=== PATIENT | female | born 1975 | race Caucasian/White ===

== ENCOUNTER → 2017-03-18 17:11 | Outpatient (CLI) | payer BC, SELFPAY ==
--- NOTE | 2017-03-18 17:16 | MM_ITS ---
MM Dig screening mamm BI w/CAD CAD Screening ORDERING PHYSICIAN : Nico Kulkarni MD PATIENT AGE: 41 years GENDER: Female COMPARISON: Previous mammograms: February 2015, May 2009, February INDICATION: Routine SCREENING mammogram ordered Patient notes Prior breast discharge on left with touch prep performed through Dr. Villalta office, reportedly revealed foam cells. No breast discharge today with the mammogram as per technologistBH-as was portable history provided. TECHNIQUE: Standard CC and MLO images were obtained. R2 CAD reviewed. Also additional axillary cc view both breast and and 90 degrees view left breast FINDINGS: Dense breast bilaterally decreases sensitivity of mammography but multiple prior studies are helpful and supportive stable appearance here by mammography.. The breast of this density ultrasound can be useful compliment and should be considered if clear or bloody discharge should persist No dominant mass nor suspicious calcifications in either breast on today's study. RIGHT BREAST: No new findings a stable dense breast pattern LEFT BREAST:No appreciable new findings. Stable dense breast pattern IMPRESSION: . 1. Dense breast bilaterally with no significant change previous studies on today's screening mammogram I would note diffusely dense breast pattern does decrease sensitivity of mammography.. Ultrasound can be useful compliment to mammography in this setting . Low threshold for breast ultrasound particularly if developed palpable area develops; or if persistent clear or bloody discharge should persist.. --. *Addendum:*--- I now see on additional history from technologist, states that the patient has had bleeding from the nipple for up to 4 months.. & Dr. Villalta did a nipple smear slide in his office which was negative. However If indeed there has indeed been \bloody nipple discharge for 4 months with no evident associated skin lesion,... Then ultrasound would be in order to further survey left breast; looking for any intraductal papilloma or intraductal features BI-RADS Category: 0 Need Additional Imaging Evaluaiton. RECOMMENDED FOLLOW-UP: IMM - IMMEDIATE FOLLOW-UP RECOMMENDED Ultrasound left breast recommended at patient's convenience or preferably with bloody discharge occurring. (A letter has been sent to the patient regarding results of the study.)
== END ==
PROVIDERS: Family Provider Family Medicine; PCP Family Medicine; Visit Provider Nurse Practitioner Obstetrics & Gynecology
DX: Z12.31 Encounter for screening mammogram for malignant neoplasm of breast (principal); Z01.419 Encounter for gynecological examination (general) (routine) without abnormal findings
CPT/HCPCS: 77067

== ENCOUNTER → 2017-03-21 15:46 | Outpatient (POV) | payer BC, SELFPAY | PROVIDERS: Visit Provider Dermatology | DX: Z00.00 Encounter for general adult medical examination without abnormal findings (principal) ==

== ENCOUNTER → 2017-03-22 10:11 | Outpatient (CLI) | payer BC, SELFPAY ==
--- NOTE | 2017-03-22 10:14 | US_ITS ---
US breast LT complete including axillary survey. ORDERING PHYSICIAN : Nico Kulkarni MD PATIENT AGE: 41 years GENDER: Female COMPARISON: February 2016 and 2017 and 2016 lateral mammogram. INDICATION: Breast discharge left breast, at times bloody TECHNIQUE: Standard CC and MLO images were obtained. R2 CAD reviewed. FINDINGS: Very dense breast bilaterally decreases sensitivity of mammography. There is been slight additional fatty replacement however when compared back to 2009 ========= LEFT BREAST ultrasound including axilla survey: . Dense fibrotic glandular tissue throughout left breast generous ducts throughout left breast most evident at retroareolar region. However no discrete or unique no intraductal lesion or findings identified No dominant mass or cyst otherwise left breast... . Limited axillary survey unremarkable. IMPRESSION: Ultrasound left breast reveals prominent ducts left breast most evident at the retroareolar region. No intraductal lesions evident Dense breast. Based on imaging alone follow-up in one year the adequate..* However if bloody discharge should persist clinically, consider 6 month follow-up to again survey BI-RADS Category: 2 Benign Finding(s) RECOMMENDED FOLLOW-UP: 1YR - 1 YEAR FOLLOW-UP .* However if bloody discharge should persist clinically consider 6 month follow-up (A letter has been sent to the patient regarding results of the study.) In
== END ==
PROVIDERS: PCP Family Medicine; Visit Provider Nurse Practitioner Obstetrics & Gynecology
DX: R92.2 Inconclusive mammogram (principal)
CPT/HCPCS: 76641

== ENCOUNTER → 2017-03-26 18:31 | Outpatient (CLI) | payer BC, SELFPAY ==
[2017-03-26 18:48] LABS: Basophils % 0.6 % (0.1-2.0); Eosinophils # 0.1 K/mm3 (0.0-0.4); Eosinophils % 0.7 % (0.1-12.0); Hematocrit 39.2 % (37.0-47.0); Hemoglobin 12.9 g/dL (12.2-16.2); Lymphocytes # 2.7 K/mm3 (0.7-4.5); Lymphocytes % 37.3 K/mm3 (10-50); Mean Corpuscular HGB Conc 32.8 g/dL (31.8-35.4); Mean Corpuscular Hemoglobin 31.1 pg (27.0-31.2); Mean Platelet Volume 8.3 fl (7.4-10.4); Monocytes # 0.3 K/mm3 (0.1-1.0); Neutrophils # 4.2 K/mm3 (1.8-7.8); Neutrophils % 57.4 % (37.0-80.0); Platelet Count 247 K/mm3 (142-424); Red Blood Count 4.13 M/mm3 (4.20-5.40); Red Cell Distribution Width 12.8 % (11.5-17.5); White Blood Count 7.3 K/mm3 (4.8-10.8)
[2017-03-26 20:03] LABS: HCG Qualitative, Serum Negative (Negative)
[2017-03-26 20:31] LABS: Anion Gap 15.7 mEq/L (5-15); Blood Urea Nitrogen 15 mg/dL (7-18); Carbon Dioxide 25 mmol/L (21.0-32.0); Chloride 107 mmol/L (98-107); Creatinine,Serum 0.81 mg/dL (0.55-1.02); Estimated Glomerular Filt Rate 77 ml/min (>60); GFR (African American) 93 ML/MIN (>60); Glucose 85 mg/dL (74-106); Potassium 3.7 mmoL/L (3.5-5.1); Sodium 144 mmol/L (136-145)
== END ==
PROVIDERS: Family Provider Family Medicine; PCP Family Medicine; Visit Provider Nurse Practitioner Obstetrics & Gynecology
DX: Z01.818 Encounter for other preprocedural examination (principal)
CPT/HCPCS: 36415; 80048; 84703; 85025

== ENCOUNTER 2017-03-29 06:13 | Day surgery (SDC) | payer BC, SELFPAY ==
[2017-03-28 08:48] VITALS: BP 154/74; PULSE 59; RESP 18; O2SAT 100
[2017-03-28 14:07] VITALS: BMI 29.6
[2017-03-29] VITALS (7 sets, daily range): BP systolic 111–156; BP diastolic 70–93; PULSE 55–67; RESP 16–18; TEMP 36.3–36.9; O2SAT 96–100
--- NOTE | 2017-03-29 07:18 | P.PN_ITS ---
[facility] Anesthesia Checklist - Patient Identification Patient Identification: Arm Band, Verbal (Name & ) - Structural Data Admitted From: Home Planned Operative Procedure/s: d and c Consent for Planned Operative Procedure(s) Verified: Yes Verified Documents: Surgical Consent - NPO Status Verified Time NPO: 00:00 - Chart Verification Results Verified: CBC, BMP - Additional verifications Patient : No Anesthesia Reactions: No Hx Blood Transfusions: No Blood Transfusion Reaction: No Cephalosporin Allergy: No Previous Colonoscopy: No - Cardiovascular Assessment Heart Sounds: S1 & S2 Pulse Strength: Baseline Pulse Rhythm: Regular Peripheral Edema: No - Airway Assessment C-Spine Mobility Assessed: Yes TMJ Mobility Assessed: Yes Dentition: Good Dentition - Neurological Assessment Level of Consciousness: Awake, Alert, Appropriate - Genitourinary Assessment 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
--- NOTE | 2017-03-29 08:01 | HMH.ANESI ---
[facility] Anesthesia Record Part I Intake, IV Amount: 200 Estimated blood loss (mL): 49 Urine output (mL): 50 Blood Products used (#): none Blood Pressure: 113/70 SaO2: 96 Pulse Rate: 61 Respiratory Rate: 18 Temperature: 97.3 F Patient is:: Stable, Somnolent Stable to PACU at:: 08:02
--- NOTE | 2017-03-29 08:03 | P.OP_ITS ---
Date of procedure: 03/29/17 Pre-op Diagnosis:: Menorrhagia Post-op diagnosis:: same Procedure performed:: Hysteroscopy, dilation and curettage, NovaSure ablation Surgeon:: Nico Kulkarni MD UNDERGROUND MINE MACHINERY MECHANIC:: Lucas Cameron Anesthesia: LMA Estimated blood loss (mL): 50 Clinical Note:: She is a 41-year-old lady who complains of extremely heavy periods. Ultrasound was normal as well as endometrial biopsy was negative for hyperplasia or endometrial carcinoma. After having discussed the risks and benefits we elected to perform a hysteroscopy D&C and NovaSure ablation. Operative findings:: She had an anteverted uterus that had a normal-appearing endometrial cavity. The cavity sounded to 7 cm. The endometrial length was 4.5 cm. The endometrial width was 4.5 cm's. These numbers were placed in the NovaSure device. Operative note:: She was taken to the operating room where LMA anesthesia was found be adequate. She was prepped and draped in the normal sterile fashion in the lithotomy position. A weighted speculum was placed in the vagina and the anterior lip of the cervix was grasped with a tenaculum. The cervix was dilated with dilators diameter of 5 mm. I then placed a hysteroscope into the uterine cavity and the findings were as previously dictated. I then performed a gentle curettage with a medium curette. The NovaSure device was then placed within the uterine cavity and the settings were placed into the machine. It was run through its program. I then took another picture of the endometrial cavity and it seemed that the entire endometrium was completely charred. I injected 30 cc of 0.5% ropivacaine at the 3:00, 5:00, 7:00, and 9:00 positions. The patient tolerated the procedure well and was taken to the recovery room in excellent condition. All sponge instrument and needle counts were correct. The estimate blood loss was less than 50 cc. Pathology: other Condition: stable Disposition: PACU Specimens:: Endometrial curettings Complications:: None
--- NOTE | 2017-03-29 08:03 | P.PN_ITS ---
[facility] Anesthesia Record Part II Discharge Time: 08:32 Destination: Surgical Day Care (OP Surgery) PACU nurse assessment reviewed?: Yes Patient Condition:: Good Anesthesia Complications:: None
== END 2017-03-29 09:07 | disposition home or self-care (01) ==
LOC: OR 06:14
PROVIDERS: Family Provider Family Medicine; PCP Family Medicine; Visit Provider Nurse Practitioner Obstetrics & Gynecology
PROC: 0UDB8ZZ Extraction of Endometrium, Via Natural or Artificial Opening Endoscopic (ICD-10-PCS; CPT 58558; principal; 2017-03-29 07:30)
PROC: 0U5B7ZZ Destruction of Endometrium, Via Natural or Artificial Opening (ICD-10-PCS; CPT 58353; 2017-03-29 07:30)
DX: N92.0 Excessive and frequent menstruation with regular cycle (principal)
CPT/HCPCS: 58563; 58120; 96374; J0131; J2405

== ENCOUNTER → 2017-06-28 07:13 | Outpatient (CLI) | payer BC, SELFPAY ==
[2017-06-28 08:38] LABS: Alanine Aminotransferase 23 U/L (12-78); Albumin Level 3.7 gm/dL (3.4-5.0); Albumin/Globulin Ratio 1.2 (1.1-1.8); Alkaline Phosphatase 71 U/L (46-116); Anion Gap 10.1 mEq/L (5-15); Aspartate Amino Transferase 24 U/L (15-37); Bilirubin,Total 0.4 mg/dL (0.2-1.0); Blood Urea Nitrogen 15 mg/dL (7-18); Calcium 9.3 mg/dL (8.5-10.1); Carbon Dioxide 29 mmol/L (21.0-32.0); Chloride 104 mmol/L (98-107); Chol/HDL Ratio 4.4 (1-3.5); Cholesterol 237 mg/dL (140-200); Creatinine,Serum 0.78 mg/dL (0.55-1.02); Estimated Glomerular Filt Rate 80 ml/min (>60); GFR (African American) 97 ML/MIN (>60); Globulin 3.2 gm/dl (1.3-3.2); Glucose 96 mg/dL (74-106); HDL Cholesterol 54 mg/dL (29-89); LDL Cholesterol 165 mg/dL (0-130); Potassium 4.1 mmoL/L (3.5-5.1); Sodium 139 mmol/L (136-145); Total Protein,Serum 6.9 gm/dL (6.4-8.2); Triglycerides 91 mg/dL (30-200); VLDL Cholesterol 18 mg/dL (0-40)
== END ==
PROVIDERS: Visit Provider Family Medicine
DX: E78.00 Pure hypercholesterolemia, unspecified (principal)
CPT/HCPCS: 36415; 80053; 80061

== ENCOUNTER → 2017-12-30 07:06 | Outpatient (CLI) | payer BC, SELFPAY ==
[2017-12-30 07:47] LABS: Alanine Aminotransferase 22 U/L (12-78); Albumin Level 3.7 gm/dL (3.4-5.0); Alkaline Phosphatase 60 U/L (46-116); Aspartate Amino Transferase 19 U/L (15-37); Bilirubin,Direct 0.2 mg/dL (0.0-0.2); Bilirubin,Indirect 0.3 mg/dL (0.0-0.9); Bilirubin,Total 0.5 mg/dL (0.2-1.0); Chol/HDL Ratio 2.4 (1-3.5); Cholesterol 148 mg/dL (140-200); HDL Cholesterol 61 mg/dL (29-89); LDL Cholesterol 77 mg/dL (0-130); Total Protein,Serum 6.5 gm/dL (6.4-8.2); Triglycerides 52 mg/dL (30-200); VLDL Cholesterol 10 mg/dL (0-40)
== END ==
PROVIDERS: Visit Provider Family Medicine
DX: E78.00 Pure hypercholesterolemia, unspecified (principal)
CPT/HCPCS: 36415; 80061; 80076

== ENCOUNTER → 2018-08-04 09:38 | Outpatient (CLI) | payer BC, SELFPAY ==
[2018-08-04 12:02] LABS: Alanine Aminotransferase 38 U/L (12-78); Albumin Level 3.5 gm/dL (3.4-5.0); Albumin/Globulin Ratio 1.3 (1.1-1.8); Alkaline Phosphatase 62 U/L (46-116); Anion Gap 9.7 mEq/L (5-15); Aspartate Amino Transferase 30 U/L (15-37); Bilirubin,Total 0.3 mg/dL (0.2-1.0); Blood Urea Nitrogen 11 mg/dL (7-18); Calcium 8.7 mg/dL (8.5-10.1); Carbon Dioxide 30 mmol/L (21.0-32.0); Chloride 108 mmol/L (98-107); Chol/HDL Ratio 2.4 (1-3.5); Cholesterol 152 mg/dL (140-200); Creatinine,Serum 0.72 mg/dL (0.55-1.02); Estimated Glomerular Filt Rate 88 ml/min (>60); GFR (African American) 106 ML/MIN (>60); Globulin 2.8 gm/dl (1.3-3.2); Glucose 92 mg/dL (74-106); HDL Cholesterol 63 mg/dL (29-89); LDL Cholesterol 79 mg/dL (0-130); Potassium 4.7 mmoL/L (3.5-5.1); Sodium 143 mmol/L (136-145); Total Protein,Serum 6.3 gm/dL (6.4-8.2); Triglycerides 52 mg/dL (30-200); VLDL Cholesterol 10 mg/dL (0-40)
== END ==
PROVIDERS: Visit Provider Family Medicine
DX: E78.00 Pure hypercholesterolemia, unspecified (principal)
CPT/HCPCS: 36415; 80053; 80061

== ENCOUNTER → 2019-08-03 10:26 | Outpatient (CLI) | payer BC, SELFPAY ==
[2019-08-03 11:54] LABS: Alanine Aminotransferase 16 U/L (12-78); Albumin Level 4.2 g/dl (3.5-5.0); Albumin/Globulin Ratio 1.8 (1.1-1.8); Alkaline Phosphatase 61 U/L (38-126); Aspartate Amino Transferase 31 U/L (14-36); Bilirubin,Total 0.3 mg/dl (0.2-1.3); Blood Urea Nitrogen 13 mg/dl (7-17); Calcium 9.3 mg/dl (8.4-10.2); Carbon Dioxide 29 mmol/L (22.0-30.0); Chloride 105 mmol/L (98-107); Chol/HDL Ratio 2.4 (1-3.5); Cholesterol 147 mg/dl (140-200); Estimated Glomerular Filt Rate 77 ml/min (>60); GFR (African American) 93 ML/MIN (>60); Globulin 2.4 g/dL (1.3-3.2); Glucose 109 mg/dl (74-100); HDL Cholesterol 62 mg/dl (40-60); Sodium 140 mmol/L (136-145); Total Protein,Serum 6.6 g/dl (6.3-8.2); Triglycerides 70 mg/dl (30-150); VLDL Cholesterol 14 mg/dL (0-40)
[2019-08-03 13:39] LABS: Direct LDL Cholesterol 75.61 mg/dL (100-129)
== END ==
PROVIDERS: Visit Provider Family Medicine
DX: E78.00 Pure hypercholesterolemia, unspecified (principal)
CPT/HCPCS: 36415; 80053; 80061

== ENCOUNTER → 2020-07-19 15:35 | Outpatient (POV) | payer BC, SELFPAY | PROVIDERS: Visit Provider Dermatology | DX: Z00.00 Encounter for general adult medical examination without abnormal findings (principal) ==

== ENCOUNTER → 2021-11-04 08:37 | Outpatient (CLI) | payer BC, SELFPAY | PROVIDERS: PCP Family Medicine; Visit Provider Surgery | DX: Z01.812 Encounter for preprocedural laboratory examination (principal); Z20.822 Contact with and (suspected) exposure to COVID-19; Z12.11 Encounter for screening for malignant neoplasm of colon | CPT/HCPCS: C9803; U0003; U0005 ==

== ENCOUNTER 2021-11-07 06:30 | Day surgery (SDC) | payer BC, SELFPAY ==
[2021-11-03 14:16] VITALS: BMI 37.8
[2021-11-07 06:55] VITALS: BP 120/74; PULSE 76; RESP 18; TEMP 36.6; O2SAT 99
--- NOTE | 2021-11-07 07:02 | EXP.ANES.CKL ---
PFSH PFSH Medical History (Updated 11/07/21 @ 07:09 by Suzanne Tinsley RN) Anxiety Arthritis History of anemia History of COVID-19 Hyperlipidemia Hypertension Lipoma Sinus headache Surgical History (Updated 11/07/21 @ 07:07 by Suzanne Tinsley RN) History of breast reconstruction History of mastectomy Hx of wisdom tooth extraction Family History (Updated 11/03/21 @ 13:48 by Nicol Love, RN) Grandmother Breast cancer Family/Other Breast cancer Father Pancreatic cancer Stroke Heart attack Social History (Updated 11/03/21 @ 13:49 by Nicol Love RN) Smoking Status: Never smoker alcohol intake: current substance use type: denies use current occupational status: employed Travel in the last 8 weeks: None household members: spouse and children housing: house 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 current occupational exposures/hazards: No caffeine: Yes [facility] Anesthesia Checklist Patient Identification Patient Identification: Arm Band and Verbal (Name & ) Structural Data Admitted From: Home Planned Operative Procedure/s: Colonoscopy Consent for Planned Operative Procedure(s) Verified: Yes NPO Status Verified Time NPO: 00:00 Chart Verification Results Verified: CBC and HCG Additional verifications Anesthesia Reactions: No Hx Blood Transfusions: No Blood Transfusion Reaction: No Airway Assessment C-Spine Mobility Assessed: Yes TMJ Mobility Assessed: Yes Dentition: Good Dentition Neurological Assessment Level of Consciousness: Awake Hx Seizures: No Numbness or tingling in extremities: No Anesthesia Plan Anesthesia Risk discussed: Yes Anesthesia Plan: Verified ASA Class: II Anesthesia Type: MAC
[2021-11-07 07:08] LABS: Urine Pregnancy, HCG Qual. Negative (Negative)
[2021-11-07 07:31] VITALS: O2SAT 99
--- NOTE | 2021-11-07 08:06 | HMH.SCOPE ---
Procedure: Date: 11/07/21 Patient Date of :: 1975 Procedure Performed:: Colonoscopy Indications:: Screening Performing Provider:: Reginald Bay MD Referring Provider:: Dr. Celis Sedation:: Monitored anesthesia care Procedure:: After informed consent was obtained the patient was taken to the endoscopy suite. Sedation ensued after the patient was transferred to the left lateral decubitus position. Pulse, blood pressure, and oxygen saturation were monitored throughout the procedure. Digital rectal exam revealed no significant abnormality. The colonoscope was placed in position. The entire colon was evaluated. The colonoscope was carefully removed and the patient was transferred to recovery in stable condition. Please see findings and specimens below for detail. Findings:: Bowel preparation moderate to poor Hemorrhoidal tag/cushions Fairly profound lack of relaxation/spasticity Moderate tortuosity Recommendations:: Repeat colonoscopy in 1-2 years with extended bowel preparation secondary to limitations in visualization. Complications:: No immediate with the exception of moderate to poor bowel preparation Estimated blood obtained (mL): 0
[2021-11-07 08:07] VITALS: BP 106/71; PULSE 117; RESP 12; TEMP 36.4; O2SAT 93
[2021-11-07 08:17] VITALS: BP 100/75; PULSE 97; RESP 12; O2SAT 95
[2021-11-07 08:27] VITALS: BP 106/80; PULSE 94; RESP 16; O2SAT 98
[2021-11-07 08:37] VITALS: BP 116/71; PULSE 92; RESP 16; TEMP 36.4; O2SAT 98
== END 2021-11-07 08:45 | disposition home or self-care (01) ==
LOC: OUTP 06:31
PROVIDERS: PCP Family Medicine; Visit Provider Surgery
PROC: 0DJD8ZZ Inspection of Lower Intestinal Tract, Via Natural or Artificial Opening Endoscopic (ICD-10-PCS; CPT 45378; principal; 2021-11-07 07:30)
DX: Z12.11 Encounter for screening for malignant neoplasm of colon (principal)
CPT/HCPCS: 45378; 81025; J2405; J2704

== ENCOUNTER 2022-06-27 15:54 | Emergency (ER) | payer BC, SELFPAY ==
[2022-06-27 16:14] VITALS: BP 145/92; PULSE 82; RESP 16; TEMP 36.9; O2SAT 100; BMI 33.4
--- NOTE | 2022-06-27 16:22 | EXP.UTC ---
Discharge Plan Disposition Patient Disposition: Home, Self-Care Condition: Good Prescriptions Prescriptions: New azithromycin [Zithromax] 250 mg tablet 250 mg PO UD DOSE PK Qty: 6 0RF Rx Instructions: Take two (2) tablets today, then one (1) tablet days #2 thru #5 benzonatate [benzonatate] 100 mg capsule 100 mg PO TIDP PRN (Reason: Cough) Qty: 30 0RF methylprednisolone 4 mg Tablets,Dose Pack 4 mg PO DIRECTED Qty: 21 0RF No Action irbesartan 150 mg tablet 150 mg PO DAILY Qty: 60 rosuvastatin 10 mg tablet 10 mg PO DAILY Qty: 90 melatonin 5 mg capsule 1 mg PO NEEDED PRN (Reason: Sleep) meloxicam 7.5 mg tablet 7.5 mg PO DAILY duloxetine 30 mg capsule,delayed release(DR/EC) 30 mg PO DAILY cholecalciferol (vitamin D3) 50 mcg (2,000 unit) capsule 50 mcg PO DAILY Wegovy 0.25 mg/0.5 mL pen injector SQ Label Comments: INJECT 0.25MG SUBCUTANEOUSLY ONCE A WEEK medroxyprogesterone [Provera] 5 mg tablet 5 mg PO DAILY Qty: 90 3RF estradiol 1 mg tablet 1 mg PO DAILY Qty: 90 3RF Referrals Follow up/Referrals: Brandan Celis MD [Primary Care Provider] - See instructions Activity Restrictions/Add. Instructions Additional Instructions/Restrictions: Drink plenty of fluids. Take tylenol or ibuprofen for pain or fever. Take the medications as directed. Follow up with your regular doctor. GO TO THE ER FOR ANY WORSENING SYMPTOMS Don't start the oral steroids until tomorrow, since you had the shot here today. Clinical Impressions Clinical Impression: Sinusitis, Laryngitis, Pharyngitis Stand Alone Forms Stand Alone Forms: Work/School Release Instructions Patient Instructions: Laryngitis, DI for Sinusitis, DI for Laryngitis, Dexamethasone Injection Discharge ED Provider: Mendez Neil [facility] General Stated complaint: sore throat Mode of Arrival: Ambulatory Source of Information: Patient Limitations: No Limitations Time Seen by Provider: 06/27/22 16:22 HEENT Symptoms (Recalled from RN notes): Yes Resp Symptoms (Recalled from RN notes): No Skin Symptoms (Recalled from RN notes): No MS Symptoms (Recalled from RN notes): No Functional Status (Recalled from RN notes): wnl History of Present Illness Provider Complaint: pt c/o yellowish brown drainage, bilateral ear pressure, RANGEL and sore throat. ongoing since 06/24 Related Data Home Medications Medication Instructions Recorded Confirmed irbesartan 150 mg tablet 150 mg PO DAILY BP #60 tabs 08/19/18 03/20/22 melatonin 5 mg capsule 1 mg PO NEEDED PRN Sleep 08/19/18 03/20/22 rosuvastatin 10 mg tablet 10 mg PO DAILY Cholesterol #90 tabs 08/19/18 03/20/22 cholecalciferol (vitamin D3) 50 50 mcg PO DAILY Supplement 08/09/21 03/20/22 mcg (2,000 unit) capsule duloxetine 30 mg capsule,delayed 30 mg PO DAILY Depression 08/09/21 03/20/22 release meloxicam 7.5 mg tablet 7.5 mg PO DAILY Arthritis 08/09/21 03/20/22 semaglutide (weight loss) 0.25 ml SQ 03/20/22 03/20/22 mg/0.5 mL subcutaneous pen injector (Gagan) Previous Rx's Medication Instructions Recorded estradiol 1 mg tablet 1 mg PO DAILY #90 tabs 03/08/22 medroxyprogesterone 5 mg tablet 5 mg PO DAILY #90 tabs 03/08/22 (Provera) azithromycin 250 mg tablet 250 mg PO UD DOSE PK #6 tabs 06/27/22 (Zithromax) benzonatate 100 mg capsule 100 mg PO TIDP PRN Cough #30 caps 06/27/22 methylprednisolone 4 mg tablets in 4 mg PO DIRECTED #21 tabs 06/27/22 a dose pack Allergies Allergy/AdvReac Type Severity Reaction Status Date / Time No Known Allergies Allergy Verified 06/27/22 16:20 Worker's Comp Is this a Worker's Comp case?: No [facility] Disclaimer: The information contained in this section may have been updated after the patient was seen, as this information can be updated by other users. Medical History Anxiety Arthritis History
[2022-06-27 16:45] VITALS: BP 145/92; PULSE 82; RESP 16; TEMP 36.9
== END 2022-06-27 16:46 | disposition home or self-care (01) ==
PROVIDERS: Emergency Provider Nurse Practitioner Family; PCP Family Medicine
DX: J01.90 Acute sinusitis, unspecified (principal); J02.9 Acute pharyngitis, unspecified; J04.0 Acute laryngitis; H92.03 Otalgia, bilateral; I10 Essential (primary) hypertension; E78.5 Hyperlipidemia, unspecified
CPT/HCPCS: 96372; 99212; 99214; G0463

== ENCOUNTER → 2022-09-20 08:32 | Outpatient (POV) | payer BC, SELFPAY | PROVIDERS: Visit Provider Specialist/Technologist | DX: Z00.00 Encounter for general adult medical examination without abnormal findings (principal) ==

== ENCOUNTER → 2022-10-04 16:37 | Outpatient (CLI) | payer BC, SELFPAY ==
--- NOTE | 2022-10-04 16:49 | MR_ITS ---
PROCEDURE INFORMATION: Exam: MR Head Without Contrast Exam date and time: 10/04/2022 5:10 PM Age: 47 years old Clinical indication: Other: Left ear hearing loss; Additional info: Left-sided hearing loss TECHNIQUE: Imaging protocol: Magnetic resonance imaging of the head without contrast. COMPARISON: No relevant prior studies available. FINDINGS: Brain: No acute infarct. No hemorrhage. Unremarkable white matter for age. No edema. No mass is seen in the internal auditory canals by noncontrast MRI technique. The MRI appearance of the vestibule and cochlea is unremarkable. Meckel's caves appear clear. The visualized cranial nerves at the skull base are unremarkable. Cerebral ventricles: Normal. No ventriculomegaly. Bones/joints: Partially imaged upper cervical spinal degenerative disc disease with mild stenosis due to diffuse disc bulging at C2-C3. Paranasal sinuses: Normal as visualized. No acute sinusitis. Mastoid air cells: Minimal left mastoid effusion. Orbital cavities: Unremarkable. Soft tissues: Unremarkable. IMPRESSION: 1. No acute intracranial abnormality. 2. No mass in the internal auditory canals is identified by noncontrast MRI technique.
== END ==
PROVIDERS: PCP Family Medicine; Visit Provider Nurse Practitioner
DX: H90.5 Unspecified sensorineural hearing loss (principal)
CPT/HCPCS: 70551

== ENCOUNTER → 2023-02-01 15:54 | Outpatient (CLI) | payer BC, SELFPAY ==
[2023-02-01 16:06] LABS: Adenovirus,PCR Not Detected (NotDetected); Coronavirus 19, PCR Not Detected (NotDetected); Coronavirus 229E Not Detected (NotDetected); Coronavirus NL63 Not Detected (NotDetected); Coronavirus OC43 Not Detected (NotDetected); Coronovirus HKU1,PCR Not Detected (NotDetected); Human Metapneumovirus Not Detected (NotDetected); Influenza A, PCR Not Detected (NotDetected); Influenza AH1, 2009 Not Detected (NotDetected); Influenza AH1, PCR Not Detected (NotDetected); Influenza AH3,PCR Not Detected (NotDetected); Influenza B, PCR Not Detected (NotDetected); Parainfluenza 1, PCR Not Detected (NotDetected); Parainfluenza 2, PCR Not Detected (NotDetected); Parainfluenza 3, PCR Not Detected (NotDetected); Parainfluenza 4, PCR Not Detected (NotDetected); Rhinovirus/Enterovirus Not Detected (NotDetected)
[2023-02-01 18:14] LABS: Respiratory Syncytial Virus Detected (NotDetected)
== END ==
PROVIDERS: PCP Family Medicine; Visit Provider Family Medicine
DX: J06.9 Acute upper respiratory infection, unspecified (principal); B97.4 Respiratory syncytial virus as the cause of diseases classified elsewhere
CPT/HCPCS: 87632; 87635

== ENCOUNTER 2024-08-12 14:27 | Outpatient (CLI) | payer BC, SELFPAY ==
--- OUTSIDE RECORDS SUMMARY | 2024-08-03 12:15 | XMS_ITS ---
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 Name Role Phone Brandan Celis Primary Care Provider Allergies No Known Allergies REASON FOR VISIT 6 month Encounters Encounter Location Date Provider Diagnosis [facility] [address] [place] [id number] 08/03/2024 Brandan Celis Plan Of Treatment Next Appt Details Provider Name:Brandan de leon, 08/12/2024 01:45:00 PM, [address], [address], [place], [place], [phone], Provider Name:Brandan de leon, 02/03/2025 04:00:00 PM, [address], [address], [place], [place], [phone], Progress Notes * DESIREEMayDOB:1975 ([age] yo F)Acc No.[id number]:08/03/2024 Progress Notes Patient: Faustina May Provider: Poornima Celis M.D. :1975 A ge:49 Y S ex:Female Date:08/03/2024 Address:[address] [id number] Subjective: * Chief Complaints: * 1 . 6 month. * HPI: C ardiology: 49 year old female presents with c/o Blood Pressure Elevated?Pt here for 6 mo f/u on hypertension. Pt states she is doing well and does not have any concerns.? c/o Hyperlipidemia P t is fasting today. * ROS: D ERMATOLOGY: no R jarad. n o H jacquie. G ASTROENTEROLOGY: no N ausea. n o V omiting. U ROLOGY: no D ifficulty urinating. n o B lood in urine. 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 Kulkarni, Osteoartritis, LT Breast Reoccuring Bleeding Papilloma, Bilateral Mastectomy Prophylactic. * Surgical History: W isdom Teeth Extractions , LT Side Lypoma Removal , Endrometrial Ablasion 03/29/2017, LT Nipple Papaloma Removal 06/05/2017, Bilateral Mastectomy- [facility] 03/11/2018, Bilateral Breast Implants 06/11/2018, Fat Grafting on Implants 09/2018. * Hospitalization/Major Diagno stic Procedure: D enies Past Hospitalization. * Family History: F ather: , diagnosed with Cancer, Diabetes, Stroke, Heart Disease. M other: alive.?Siblings: alive. C hildren: alive. 1 sister(s) - healthy. 1 son(s) , 1 daughter(s) - healthy. . Father - Pancreatic Cancer\nMother - Hyperlipidemia. * Social History: C URRENT TOBACCO USE S moking Status: P atient does NOT smoke, F ormer Smoker:?No. * Allergies: N .K.D.A. Objective: * Vitals: Assessment: Plan: * Treatment: * Billing Information: * Visit Code: * Procedure Codes: * Electronic signature of Brie Celis MD on 08/12/2024 at 02:30 PM EDT Sign off status: Pending * Provider: Poornima Celis M.D. Date: 0 08/03/2024 Generated for Charito campa/Danny/Shannan on: 0 08/12/2024 02:30 PM EDT History and Physical Notes * HPI (History of Present Illness) Category Sub-Category Detail Notes Category Not es Cardiology Blood Pressure Elevated Pt here for 6 mo f/u on hypertension. Pt states she is doing well and does not have any concerns Hyperlipidemia Pt is fasting today
--- NOTE | 2024-08-12 14:30 | XR_ITS ---
FINAL REPORT TECHNIQUE: 5 views CLINICAL HISTORY: LBP FINDINGS: There is no fracture present. There is no malalignment. There are moderate diffuse degenerative disc changes, most pronounced at L4-5 and L5-S1. Facet arthropathy is identified. Incidental note is made of right renal stones, largest measures 5 mm. IMPRESSION: Mild degenerative changes without acute fracture. Reviewed, Interpreted and Dictated by Fatimah Pulliam MD Transcribed by Suni Reinoso Authenticated and [facility]
--- OUTSIDE RECORDS SUMMARY | 2024-08-12 14:31 | XMS_ITS | Patient Health Record ---
[facility] [address] [facility] [address] [place] [id number] Care Team Providers Care Naprapath Name Role Phone Brandan Celis Primary Care Provider Daniela Salinas Unavailable [phone] Nichole Shepherd Unavailable [phone] Allergies No Known Allergies Results Component Value Reference Range Notes Influenza Screen (in house) Reviewed date:02/07/2024 08:30:48 AM Interpretation:neg Performing Lab: Notes/Report: neg results neg Rapid Strep- Inhouse Reviewed date:02/07/2024 08:30:55 AM Interpretation:neg Performing Lab: Notes/Report: neg strep test neg Covid test (in house) Reviewed date:02/07/2024 08:30:41 AM Interpretation:pos fluB Performing Lab: Notes/Report: pos fluB Result: pos fluB Reason For Referral No Information Medications Medication SIG (Take, Route, Frequency, Duration) Notes Start Date End Date Status Provera 5 MG 1 tab(s) orally once a day for 10 day(s) Active Estradiol 1 MG 1 tab(s) orally once a day for 30 day(s) Active Tamiflu 75 MG 1 capsule Orally Twi ce a day for 5 day(s) 02/06/2024 Active Rosuvastatin Calcium 10 MG 1 tablet Orally Once a day for 90 days Active Irbesartan 75 MG 1 tablet Orally Once a day for 90 days Active DULoxetine HCl 30 MG Take 1 capsule by m outh once daily for 90 Active Wegovy 2.4 MG/0.75ML INJECT 1 SYRINGE SUBCUTANEOUSLY ONCE A WEEK for 28 Active Immunizations Vaccine Route Administration Date Status Comme nts COVID 19 Moderna Unknown 03/09/2020 Administered COVID 19 Moderna Unknown 04/08/2020 Administered COVID 19 Moderna Unknown 02/20/2021 Administered Fluzone Quad (6months&older) Unknown 12/12/2017 Administered Hepatitis A (adult) Unknown 12/12/2017 Administered Hepatitis A (adult) Unknown 07/10/2018 Administered tuberculin (ppd) ID Intradermal 08/10/2020 Administered Re ad by Jaqueline Servin Problems Problem Type SNOMED Code ICD Code Onset Dates Problem Status W/U Status Risk Notes Problem 73331438 Vitamin D defici ency (E55.9) Active confirmed Problem 90116517 Essential hypert ension (I10) Active confirmed Problem 47226252237389889 Plantar wart o f right foot (B07.0) Active confirmed Problem 593279807 IFG (impaired fa sting glucose) (R73.01) Active confirmed Problem 53031592 CARLA (generalized anxiety disorder) (F41.1) Active confirmed Problem 090823669 Seasonal allergi c rhinitis, unspecified allergic rhinitis trigger (J30.2) Active confirmed Problem 406754989 Pure hypercholesterolemia (E78.00) Active confirmed Problem 779543465 Non morbid obesi ty (E66.9) Active confirmed Vital Signs Heart Rate 85 /min 08/12/2024 Blood pressure diastolic 76 mm Hg 08/12/2024 Height 61.25 in 08/12/2024 Blood pressure systolic 122 mm Hg 08/12/2024 Weight 149 lbs 08/12/2024 BMI 27.92 kg/m2 08/12/2024 Encounters Encounter Location Date Provider Diagnosis [facility] [address] [place], [place] [id number] 10/28/2023 Daniela Salinas Hemorrhoids, external K64.4 [facility] [address] [place], [place] [id number] 02/03/2024 Brandan Liberty Essential hypertensi on I10 ; Pure hypercholesterolemia E78.00 and Non morbid obesity E66.9 [facility] [address] [place], [place] [id number] 02/06/2024 Nichole Shepherd Influenza B J10.1 [facility] [address] [place], [place] [id number] 08/12/2024 Brandan Celis Essential hypertensi on I10 ; Pure hypercholesterolemia E78.00 ; IFG (impaired fasting glucose) R73.01 ; Vitamin D deficiency E55.9 ; Non morbid obesity E66.9 and Low back pain, unspecified M54.50 [facility] [address] [facility] [address] [facility] [address] [place] [id number] 10/16/2023 Brandan Celis Assessments Encounter Date Diagnosis (ICD Code) Assessment Notes Treatment Notes Treatment Clinical Notes Section Notes 10/28/2023 Hemorrhoids, externa l (ICD-10 - K64.4) cold application after wtool and prn; also moist heat application; constipation prevention; good water intake 02/03/2024 Essential hypertensi on (ICD-10 - I10) 02/03/2024 Pure hypercholesterolemia (ICD-10 - E78.00) 02/06/2024 Influenza B (ICD-10 - J10.1) Rest, fluids, tylenol or motrin for fevers. No school until fever free for 24-48 hours without the use of medication. 08/12/2024 Essential hypertensi on (ICD-10 - I10) 08/12/2024 Pure hypercholesterolemia (ICD-10 - E78.00) 08/12/2024 IFG (impaired fastin g glucose) (ICD-10 - R73.01) 02/03/2024 Non morbid obesity (ICD-10 - E66.9) 08/12/2024 Vitamin D deficiency (ICD-10 - E55.9) 08/12/2024 Non morbid obesity (ICD-10 - E66.9) 08/12/2024 Low back pain, unspecified (ICD-10 - M54.50) 08/12/2024 Other Patient will return for the following fasting labs: CMP, TSH with reflex Free T4, A1c, Lipid, Vit D and urine Micro Plan Of Treatment Pending Test Test Name Order Date X ray : Spine, lumbosacral 08/12/2024 Next Appt Details Provider Name:Brandan de leon, 08/12/2024 01:45:00 PM, [address] [facility] [address] [facility], [address], [place], [phone], Provider Name:Brandan Loving ry, 02/03/2025 04:00:00 PM, [address], [place], [id number], Insurance Providers Payer Name Payer Address Payer Phone Subscriber Number Group Number Insured Name Patient Relationship to Insured Coverage Start Date Coverage End Date [facility] [address] [place] [address] [phone] [id number] May Self - patient is the insured Medical (General) History Medical History History ICD Code Hypertension Hyperlipidemia Allergic Rhinitis RT [place], X-ray 2015 CERT[facility]IED [facility] HE[facility] AIDE - Dr. Kulkarni Osteoartritis LT Breast Reoccuring Bleeding Papilloma Bilateral Mastectomy Prophylactic Surgical History Surgery Date(Month/Year) [facility] Teeth Extractions LT Side Lypoma Removal Endrometrial Ablasion 03/29/2017 LT Nipple Papaloma Removal 06/05/2017 Bilateral Mastectomy- [facility] Bilateral Breast Implants 06/11/2018 Fat Grafting on Implants 09/2018 Hospitalization History Reason Date(Month/Year)
== END 2024-08-12 23:59 | disposition home or self-care (01) ==
LOC: RAD 14:28
PROVIDERS: PCP Family Medicine; Visit Provider Family Medicine
DX: M47.816 Spondylosis without myelopathy or radiculopathy, lumbar region (principal)
CPT/HCPCS: 72110

== ENCOUNTER 2024-12-21 10:32 | Day surgery (SDC) | payer BC, SELFPAY ==
--- NOTE | 2024-12-18 15:10 | EXP.HP ---
History of Present Illness *Admission Date: 12/21/24 *History of present illness: Mrs. Foster is a 49-year-old female who is here for screening colonoscopy. The patient has had some hemorrhoidal bleeding at times. The patient did have a colonoscopy (Reginald Bay M.D.) in October 2021 and was poorly prepped. He did recommend repeat screening colonoscopy in 1 to 2 years. The patient does note some chronic constipation but may be related to Wegovy. This does occur more than a few times weekly. The patient does note some mucus with her bowel movements and intermittent hemorrhoidal prolapse. She will see blood on the stool (striping) sometimes but mostly sees blood on the toilet tissue when she wipes. She reports no abdominal pain but does have some bloating. She also notes mucus in her bowel movements occasionally. She reports no weight loss or family history of colon cancer. Her father had pancreatic cancer at the age of 72. She did do genetic testing with her sister and there was 1 gene that put her at slightly higher risk for colon cancer. The examination is deemed medically necessary for screening colonoscopy. The patient has been seen, interviewed and examined prior to the procedure by both myself and the anesthesia provider. [facility] Disclaimer: The information contained in this section may have been updated after the patient was seen, as this information can be updated by other users. Medical History History of breast cancer Encounter for routine gynecological examination Left-sided sensorineural hearing loss Tinnitus History of COVID-19 Sinus headache Anxiety Hypertension History of anemia Lipoma LIPOMA REMOVED Arthritis Hyperlipidemia Surgical History History of endometrial ablation Hx of wisdom tooth extraction 1 WISDOM TOOTH REMOVED History of breast reconstruction History of mastectomy bilaiteral Family History Grandmother Breast cancer Family/Other Breast cancer Father Pancreatic cancer Stroke Heart attack Social History (Updated 12/21/24 @ 10:57 by Anali Dang RN) Smoking Status: Never smoker alcohol intake: current alcohol intake frequency: holidays/special occasions only substance use type: denies use current occupational status: employed Travel in the last 8 weeks?: None household members: spouse and children housing: house 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 current occupational exposures/hazards: No caffeine: Yes Have you lived/traveled outside [place] in past 30 days?: No Contact w/someone who lives/traveled outside US past 30 days?: No Exposure to someone with infectious disease in past 14 days?: No Do you have a fever (greater than 100.4 F or 38 C)?: No Have you tested positive for COVID-19?: No Exposed to someone with COVID-19 in past 14 days?: No Do you have a sore throat?: No Do you have a cough?: No Do you have any weakness?: No Are you experiencing any nausea/vomitting?: No Do you have any diarrhea?: No Are you experiencing any unusual bleeding?: No Do you have any muscle aches/pain?: No Do you have any abdominal pain?: No Are you experiencing loss of taste or smell?: No Other Medical History Have you received the Flu Vaccine for this season: No Have you received the Pneumonia Vaccine: No Review of Systems Review of Systems Review of systems (narrative): Negative *Cardiovascular Comments: Negative *Gastrointestinal Comments: Negative *Genitourinary Comments: Negative *Musculoskeletal Comments: Negative *Neurologic Comments: Negative Meds Home Medications and Allergies Home Medications ?Medication ?Instructions ?Recorded ?Confirmed ?Type rosuvastatin 10 mg tablet 10 mg PO DAILY Cholesterol #90 tabs 08/19/18 12/21/24 History cholecalciferol (vitamin D3) 50 50 mcg PO DAILY Supplement 08/09/21 12/21/24 History mcg (2,000 unit) capsule duloxetine 30 mg capsule,delayed 30 mg PO DAILY Depression 08/09/21 12/21/24 History release semaglutide (weight loss) 2.4 2.4 mg SQ WEEKLY 07/31/22 12/21/24 History mg/0.75 mL subcutaneous pen injector (Gagan) irbesartan 75 mg tablet 75 mg PO DAILY 09/16/23 12/21/24 History estradiol 1 mg tablet See Rx Instructions .Route 03/02/24 12/21/24 Rx .COMPLEX #90 tabs medroxyprogesterone 5 mg tablet See Rx Instructions .Route 03/02/24 12/21/24 Rx .COMPLEX #90 tabs magnesium 250 mg tablet 250 mg PO DAILY 10/20/24 12/21/24 History mecobalamin (vitamin B12) 500 mcg 500 mcg PO DAILY 10/20/24 12/21/24 History chewable tablet plecanatide 3 mg tablet (Trulance) 3 mg PO DAILY #30 tabs 10/20/24 12/21/24 Rx sodium,potassium,mag sulfates 17.5 See Rx Instructions PO .COMPLEX 12/08/24 12/21/24 Rx gram-3.13 gram-1.6 gram oral soln #354 mL (Suprep Bowel Prep Kit) New Prescriptions to Start Prescriptions: Allergies Allergy/AdvReac Type Severity Reaction Status Date / Time No Known Allergies Allergy Verified 12/21/24 10:58 Exam *Routine HEENT Exam Head: Present normocephalic Eye: Present EOMI and PERRL ENT: Present mucous membranes moist *Routine Neck Exam Neck: Present supple *Routine Respiratory Exam Respiratory: Present CTA bilaterally *Routine Cardiovascular Exam Cardiovascular: Present RRR *Routine Abdominal Exam Abdominal: Present soft and normoactive bowel sounds; Absent tenderness *Routine Rectal Exam Rectal:: deferred *Routine Genitalia Exam Genitalia:: deferred *Routine Extremities Exam Extremities: Absent cyanosis, clubbing or edema *Routine Skin Exam Skin: Present warm; Absent rash *Routine Neurological Exam Neurological: Present alert and oriented X3 Assessment and Plan *Assessment and plan (1) Screening for colon cancer: Status: Acute Category: Medical Code(s): Z12.11 - Encounter for screening for malignant neoplasm of colon (2) Bleeding internal hemorrhoids: Status: Acute Category: Medical Code(s): K64.8 - Other hemorrhoids (3) Prolapsed internal hemorrhoids: Status: Acute Category: Medical Code(s): K64.8 - Other hemorrhoids (4) Chronic idiopathic constipation: Status: Acute Category: Medical Code(s): K59.04 - Chronic idiopathic constipation (5) 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 Screening for colon cancer is the preprocedural diagnosis. The patient does have some bleeding and prolapsing internal hemorrhoids and some chronic constipation. The patient did have a genetic test placing her at susceptibility for colon cancer. The patient will be anesthetized/sedated using MAC sedation. The patient has been seen and examined. Cardiac and lung assessment prior to the examination is stable. Proceed with planned screening colonoscopy.
[2024-12-18 15:37] VITALS: BMI 27.9
--- NOTE | 2024-12-21 07:03 | HMH.PROCNOTE ---
[facility] Procedure Note Date: 12/21/24 Time: 12:21 Procedure Note:: Colonoscopy Procedure Report: Colonoscopy with cold snare polypectomy and monopolar ablation/coagulation of internal hemorrhoids Endoscopist: Joe Henry II, MD Referring physician: Brandan Celis MD Date of Procedure: December 21, 2024 Equipment: Twist [id number] adult colonoscope Sedation: MAC sedation Indication: Mrs. Foster is a 49-year-old female who is here for screening colonoscopy. The patient has had some hemorrhoidal bleeding at times. The patient did have a colonoscopy (Reginald Bay M.D.) in October 2021 and was poorly prepped. He did recommend repeat screening colonoscopy in 1 to 2 years. The patient does note some chronic constipation but may be related to Wegovy. This does occur more than a few times weekly. The patient does note some mucus with her bowel movements and intermittent hemorrhoidal prolapse. She will see blood on the stool (striping) sometimes but mostly sees blood on the toilet tissue when she wipes. She reports no abdominal pain but does have some bloating. She also notes mucus in her bowel movements occasionally. She reports no weight loss or family history of colon cancer. Her father had pancreatic cancer at the age of 72. She did do genetic testing with her sister and there was 1 gene that put her at slightly higher risk for colon cancer. The examination is deemed medically necessary for screening colonoscopy. Procedure: Prior to the procedure, a history and physical exam was performed, and patient's medications and allergies were reviewed. The risks, benefits and alternatives of the sedation and procedure were discussed with the patient. All questions were answered and informed consent was obtained. The patient was brought to the procedure room. Patient identification and proposed procedure were verified by the physician and the nurse. The patient was placed in a left lateral decubitus position and the scope was passed under direct vision. Throughout the procedure, the patient's blood pressure, pulse, and oxygen saturations were monitored continuously. The colonoscopy was accomplished without difficulty. The patient tolerated the procedure well. Findings: On digital rectal examination there was normal rectal tone. There were no external hemorrhoids. The colonoscope was introduced through the anal canal to the rectum and advanced to the cecum. The ileocecal valve and appendiceal orifice were identified. The scope was advanced a short distance into the ileum which appeared grossly normal. The scope was then withdrawn into the colon. The cecum, ascending and transverse colon and mucosa were grossly normal. There were mildly scattered shallow diverticuli throughout the sigmoid colon (LEFT colon). There was a single 4 mm sigmoid colon polyp removed via cold snare polypectomy. The rectum itself was normal. Upon retroflexion within the rectum there were grade 2-3 internal hemorrhoids. 3 columns of hemorrhoids were ablated/coagulated using monopolar coagulation/ablation. The preparation was excellent throughout with [place] Preparation Score of 9. The cecal time was 14 minutes. Impression: 1. Diminutive 4 mm sigmoid colon polyp 2. Mild sigmoid diverticulosis 3. Grade 2-3 internal hemorrhoids status post monopolar ablation/coagulation Plan: I would encourage a fiber bowel regimen on a long-term daily maintenance basis. I will follow-up the polyp histology and recommend repeat screening/surveillance colonoscopy again in 5 years.
[2024-12-21 10:46] VITALS: BP 102/73; PULSE 89; RESP 16; TEMP 36.2; O2SAT 97; BMI 27.9
[2024-12-21 10:53] LABS: Urine Pregnancy, HCG Qual. Negative (Negative)
[2024-12-21] MEDS: LACTATED RINGERS 1000ML 1,000 ML 50 ML IV (11:00)
[2024-12-21 12:24] VITALS: BP 97/54; PULSE 70; RESP 18; TEMP 35.9; O2SAT 99
[2024-12-21 12:34] VITALS: BP 100/70; PULSE 83; RESP 18; O2SAT 99
[2024-12-21 12:44] VITALS: BP 104/64; PULSE 73; RESP 18; O2SAT 98
[2024-12-21 12:54] VITALS: BP 106/72; PULSE 73; RESP 18; O2SAT 98
== END 2024-12-21 13:14 | disposition home or self-care (01) ==
PROVIDERS: PCP Family Medicine; Visit Provider Internal Medicine Gastroenterology
PROC: 0DJD8ZZ Inspection of Lower Intestinal Tract, Via Natural or Artificial Opening Endoscopic (ICD-10-PCS; CPT 45378; principal; 2024-12-21 12:00)
DX: Z12.11 Encounter for screening for malignant neoplasm of colon (principal); D12.5 Benign neoplasm of sigmoid colon; K63.5 Polyp of colon; K57.30 Diverticulosis of large intestine without perforation or abscess without bleeding; K64.0 First degree hemorrhoids; K64.1 Second degree hemorrhoids; K64.8 Other hemorrhoids; K59.04 Chronic idiopathic constipation; I10 Essential (primary) hypertension; E78.5 Hyperlipidemia, unspecified; M19.90 Unspecified osteoarthritis, unspecified site; Z15.060 Genetic susceptibility to colorectal cancer; Z80.0 Family history of malignant neoplasm of digestive organs
CPT/HCPCS: 45385; 46930; 81025; J2003; J2704; J7120